=== PATIENT | female | born 1995 | race Caucasian/White ===

== ENCOUNTER 2020-12-18 09:46 | Outpatient (REF) | payer OTHER, SELFPAY ==
[2020-12-18 10:22] LABS: MANUAL DIFF FLAG NO
[2020-12-18 10:30] LABS: Basophils Percent Auto 0.5 % (0-2); Eosinophils Absolute Auto 0.1 X10*3/uL (0.0-0.4); Hematocrit 34.1 % (37-47); Hemoglobin 10.3 g/dl (12.0-16.0); Imm Gran Abs Auto 0.01 X10*3/uL (0.00-0.03); Imm Gran Pct Auto 0.3 % (0.0-0.4); Lymphocytes Absolute Auto 1.3 X10*3/uL (1.2-4.9); Lymphocytes Percent Auto 32.4 % (20-40); Mean Corpuscular HGB Conc 30.2 g/dl (31.0-35.0); Mean Corpuscular Hemoglobin 21.7 pg (27.0-33.0); Mean Corpuscular Volume 71.9 fL (80-98); Mean Platelet Volume 11.1 fL (9.4-12.3); Monocytes Absolute Auto 0.2 X10*3/uL (0.1-1.2); Neutrophils Absolute Auto 2.3 X10*3/uL (2.0-8.3); Neutrophils Percent Auto 57.8 % (45-73); Platelet Count 275 X10*3/uL (160-400); Red Blood Count 4.74 X10*6/uL (4.20-5.50); Red Cell Distribution Width 16.2 % (11.0-16.0)
[2020-12-18 10:55] LABS: Alanine Aminotransferase 16 U/L (0-31); Albumin Level 4.1 g/dL (3.5-5.0); Alkaline Phosphatase 67 U/L (39-117); Anion Gap 10 (12-20); Aspartate Amino Transferase 15 U/L (5-31); Bilirubin Total 0.5 mg/dL (0.0-1.0); Blood Urea Nitrogen 11 mg/dL (9-16); Calcium 9.5 mg/dL (8.4-10.2); Carbon Dioxide 25 mmol/L (22-29); Chloride 106 mmol/L (96-108); Estimated Glomerular Filt Rate > 60; Glucose Random 91 mg/dL (60-115); Potassium 4.1 mmol/L (3.3-5.1); Sodium 137 mmol/L (135-145); Total Protein 7.4 g/dL (6.5-8.0)
[2020-12-18 11:17] LABS: Thyroid Stimulating Hormone < 0.01 uIU/mL (0.32-4.0)
[2020-12-21 04:11] LABS: Lutenizing Hormone 4.4 mIU/mL
[2020-12-23 10:52] LABS: Testosterone, Total 23 ng/dL (2-45)
== END 2020-12-18 09:47 | disposition home or self-care (01) ==
LOC: HO.LAB 09:46
PROVIDERS: PCP Internal Medicine; Visit Provider Internal Medicine
DX: Z00.00 Encounter for general adult medical examination without abnormal findings (principal); E28.2 Polycystic ovarian syndrome; L70.2 Acne varioliformis
CPT/HCPCS: 36415; 80053; 83001; 83002; 83498; 84403; 84443; 85025

== ENCOUNTER → 2021-01-13 08:51 | Outpatient (BNVA) | payer OTHER, SELFPAY | PROVIDERS: PCP Internal Medicine; Visit Provider Advanced Practice Midwife | DX: Z30.09 Encounter for other general counseling and advice on contraception (principal); Z87.42 Personal history of other diseases of the female genital tract | CPT/HCPCS: 99202 ==

== ENCOUNTER 2021-10-29 10:15 | Outpatient (REF) | payer OTHER, SELFPAY ==
[2021-10-29 10:25] LABS: MANUAL DIFF FLAG NO
[2021-10-29 10:43] LABS: Basophils Percent Auto 0.4 % (0-2); Eosinophils Absolute Auto 0.2 X10*3/uL (0.0-0.4); Hematocrit 31.9 % (37.0-47.0); Hemoglobin 9.4 g/dl (12.0-16.0); Imm Gran Abs Auto 0.03 X10*3/uL (0.00-0.03); Imm Gran Pct Auto 0.4 % (0.0-0.4); Lymphocytes Absolute Auto 1.5 X10*3/uL (1.2-4.9); Lymphocytes Percent Auto 19.4 % (20-40); Mean Corpuscular HGB Conc 29.5 g/dl (31.0-35.0); Mean Corpuscular Hemoglobin 20.9 pg (27.0-33.0); Mean Corpuscular Volume 70.9 fL (80.0-98.0); Mean Platelet Volume 10.6 fL (9.4-12.3); Monocytes Absolute Auto 0.5 X10*3/uL (0.1-1.2); Monocytes Percent Auto 6.6 % (2-11); Neutrophils Absolute Auto 5.5 x10*3/uL (2.0-8.3); Neutrophils Percent Auto 71.2 % (45-73); Platelet Count 313 X10*3/uL (160-400); Red Cell Distribution Width 19.1 % (11.0-16.0); White Blood Count 7.7 X10*3/uL (4.8-10.8)
[2021-10-29 11:32] LABS: Ferritin 5 ng/mL (10-122)
== END 2021-10-29 10:16 | disposition home or self-care (01) ==
LOC: HO.LAB 10:15
PROVIDERS: PCP Internal Medicine; Visit Provider Internal Medicine
DX: D50.8 Other iron deficiency anemias (principal); R20.8 Other disturbances of skin sensation; R23.3 Spontaneous ecchymoses
CPT/HCPCS: 36415; 82728; 85025

== ENCOUNTER 2023-05-02 14:22 | Outpatient (REF) | payer OTHER, SELFPAY ==
--- NOTE | ~2023-05-02 | US_ITS ---
EXAMINATION: US DIAGNOSTIC ULTRASOUND BREAST, LEFT CLINICAL INFORMATION: 28-year-old female complaining of left breast lump 2-3 o'clock axis x3 weeks. No history of injury. No prior imaging.. COMPARISON: None available. TECHNIQUE: Ultrasound of the breast is performed with real-time reid scale imaging and color Doppler. Attention was given to the 2-3 o'clock axis in the region of palpable concern. FINDINGS: In the 2:00 axis, 3 cm from the nipple, there is a bilobed simple cyst of which the larger measures 1.2 x 0.8 cm, and the smaller measures 0.7 x 0.5 cm. This appears to represent the palpable focus of concern. A small amount of floating debris is present centrally in both cysts. Just lateral to this area is a 0.5 cm simple cyst as well. This appears to lie within a region of fibrocystic changes. Also in the 2:00 axis, 3 cm from the nipple, there is a small circumscribed oval mildly hypoechoic mass measuring 0.7 x 0.3 x 0.7 cm, most likely a small fibroadenoma. This immediately abuts the 2 larger cysts. We will reimage this with targeted ultrasound in 6 months. Results were provided to the patient at time of visit by the technologist. US/US breast LT limited mamm only IMPRESSION: Bilobed simple cysts in the 2:00 axis of the left breast, 3 cm from the nipple, correlating with the foci of palpable concern. These are benign. No further follow-up recommended. There are fibrocystic changes in the 2-3 o'clock region. 7 x 3 x 7 mm small probable fibroadenoma also in the 2:00 axis of the left breast, 3 cm from the nipple, of which six-month follow-up targeted left ultrasound is recommended to ensure stability. ASSESSMENT: BI-RADS 3 - Probably benign finding(s) - 6 month follow-up suggested RECOMMENDATION: 6 Month F/U
== END 2023-05-02 14:23 | disposition home or self-care (01) ==
LOC: HO.MAMMO 14:22
PROVIDERS: PCP Internal Medicine; Visit Provider Internal Medicine
DX: N63.25 Unspecified lump in the left breast, overlapping quadrants (principal)
CPT/HCPCS: 76642

== ENCOUNTER → 2023-05-02 14:30 | Outpatient (BNV) | payer OTHER, SELFPAY | PROVIDERS: PCP Internal Medicine; Visit Provider Radiology Diagnostic Radiology | DX: N63.21 Unspecified lump in the left breast, upper outer quadrant (principal) | CPT/HCPCS: 76642 ==

== ENCOUNTER 2024-03-26 14:02 | Outpatient (REF) | payer OTHER, SELFPAY ==
[2024-03-26 14:12] LABS: MANUAL DIFF FLAG NO
[2024-03-26 14:53] LABS: Basophils Absolute Auto 0.1 X10*3/uL (0.0-0.2); Basophils Percent Auto 0.7 % (0-2); Eosinophils Absolute Auto 0.2 X10*3/uL (0.0-0.4); Hematocrit 31.3 % (37.0-47.0); Hemoglobin 9.4 g/dl (12.0-16.0); Imm Gran Abs Auto 0.01 X10*3/uL (0.00-0.03); Imm Gran Pct Auto 0.1 % (0.0-0.4); Lymphocytes Absolute Auto 1.8 X10*3/uL (1.2-4.9); Lymphocytes Percent Auto 25.7 % (20-40); Mean Corpuscular Hemoglobin 21.3 pg (27.0-33.0); Mean Platelet Volume 11.5 fL (9.4-12.3); Monocytes Absolute Auto 0.4 X10*3/uL (0.1-1.2); Monocytes Percent Auto 6.1 % (2-11); Neutrophils Absolute Auto 4.5 x10*3/uL (2.0-8.3); Neutrophils Percent Auto 64.4 % (45-73); Platelet Count 327 X10*3/uL (160-400); Red Blood Count 4.41 X10*6/uL (4.20-5.50); Red Cell Distribution Width 17.5 % (11.0-16.0); White Blood Count 7.1 X10*3/uL (4.8-10.8)
[2024-03-26 15:24] LABS: Alanine Aminotransferase 14 U/L (0-31); Albumin Level 4.3 g/dL (3.5-5.0); Alkaline Phosphatase 48 U/L (39-117); Anion Gap 8 (12-20); Aspartate Amino Transferase 30 U/L (5-31); Bilirubin Total 0.5 mg/dL (0.0-1.0); Blood Urea Nitrogen 11 mg/dL (9-16); Calcium 8.4 mg/dL (8.4-10.2); Carbon Dioxide 28 mmol/L (22-29); Chloride 105 mmol/L (96-108); Estimated Glomerular Filt Rate > 60; Glucose Random 109 mg/dL (60-115); Sodium 137 mmol/L (135-145); Total Protein 7.9 g/dL (6.5-8.0)
[2024-03-26 15:39] LABS: Ferritin 4 ng/mL (10-122); Vitamin D 25-OH Total 16.7 ng/mL (>30)
[2024-03-31 18:44] LABS: Immunoglobulin A 420 mg/dL (47-310); Transglutaminase IgA <1.0 U/mL
== END 2024-03-26 14:03 | disposition home or self-care (01) ==
LOC: HO.LAB 14:02
PROVIDERS: PCP Internal Medicine; Visit Provider Internal Medicine
DX: D50.8 Other iron deficiency anemias (principal); M94.0 Chondrocostal junction syndrome [Tietze]; N60.09 Solitary cyst of unspecified breast; Z68.23 Body mass index [BMI] 23.0-23.9, adult
CPT/HCPCS: 36415; 80053; 82306; 82728; 82784; 85025; 86364

== ENCOUNTER 2024-07-25 10:51 | Outpatient (REF) | payer OTHER, SELFPAY ==
--- NOTE | ~2024-07-25 | US_ITS ---
EXAMINATION: US DIAGNOSTIC ULTRASOUND BREAST, BILATERAL CLINICAL INFORMATION: Follow-up for left breast solid mass at 2:00 3 cm from the nipple April 2023. Patient has right breast palpable lumps upper outer quadrant and medial. COMPARISON: Comparison is made with relevant prior imaging. TECHNIQUE: Ultrasound of the breast is performed with real-time reid scale imaging and color Doppler. FINDINGS: : Targeted color Doppler ultrasound again demonstrates a hypoechoic oval solid mass at 2:00 recent meters from nipple measuring 6 x 3 x 8 mm not significantly changed from prior ultrasound April 2023. Targeted color Doppler ultrasound scanning in the right breast upper outer quadrant demonstrates normal fibronodular breast tissue. Targeted ultrasound in the lower inner quadrant over the sternum area of patient's palpable lump demonstrates a hypoechoic oval solid mass measuring 9 x 6 x 11 mm. Results are discussed with the patient at time of visit. US/US breast BI limited mamm only IMPRESSION: Left: Hypoechoic solid mass at 2:00 3 cm from nipple not significantly changed from prior ultrasound April 2023. Recommend one-year follow-up ultrasound for further evaluation of stability. Right: Hypoechoic oval mass over the sternum lower inner quadrant 4-5 o'clock. Recommend 6 month follow-up for further evaluation of stability. No sonographic abnormality to account for the right upper outer quadrant palpable lump. Recommend clinical evaluation and follow-up. ASSESSMENT: BI-RADS 3: Probably Benign RECOMMENDATION: Diagnostic ultrasound in 6 months. This patient's information was entered into a reminder system with a target due date for their next mammogram. Electronically signed by: Beverly Campos DO 07/26/2024 02:25 PM EDT
--- OUTSIDE RECORDS SUMMARY | 2024-07-25 12:55 | XMS_ITS | Clinical Summary ---
Author Organization [facility] it Address [address] [place] [address] Care Team Providers Care Extension Agent Name Role Phone Unavailable Primary Care Provider Unavailabl e Social History Tobacco Use Types Packs/Day Years Used Date Smoking Tobacco: Never Smokeless Tobacco: Never Comments Unknown Sex and Gender Information Value Date Recorded Sex Assigned at Not on file Legal Sex Female 1:42 PM EST Gender Identity Not on file Sexual Orientation Not on file Obstetrics History Plan of Treatment Health Maintenance Due Date Last Done Comments DTaP,Tdap,and Td Vaccines (1 - Tdap) 01/10/2015 Hepatitis B Vaccines (1 of 3 - 19+ 3-dose series) 01/10/2015 Cervical Cancer Screening: P ap Smear 01/10/2017 COVID-19 Vaccine ( - 2023-2 5 season) 2023 Depression Screening 04/24/2024 HIV Screening 04/24/2024 Hepatitis C Screening 04/24/2024 Social Influencers of Health Screening 04/24/2024 Influenza Vaccine (Season Ended) 2024 HIB Vaccines Aged Out No longer eligi ble based on patient's age to complete this topic HPV Vaccines Aged Out No longer eligi ble based on patient's age to complete this topic Hepatitis A Vaccines Aged Out No long er eligible based on patient's age to complete this topic IPV Vaccines Aged Out No longer eligi ble based on patient's age to complete this topic MMR Vaccines Aged Out No longer eligi ble based on patient's age to complete this topic Meningococcal ACWY Vaccine Aged Out N o longer eligible based on patient's age to complete this topic Meningococcal B Vaccine Aged Out No l onger eligible based on patient's age to complete this topic Pneumococcal Vaccine: Pediat rics (0 to 5 Years) and At-Risk Patients (6 to 64 Years) Aged Out No longer eligible b ased on patient's age to complete this topic RSV Immunization Patients Un josé 20 months Aged Out No longer eligible b ased on patient's age to complete this topic Varicella Vaccines Aged Out No longer eligible based on patient's age to complete this topic
== END 2024-07-25 10:52 | disposition home or self-care (01) ==
LOC: HO.MAMMO 10:51
PROVIDERS: PCP Internal Medicine; Visit Provider Internal Medicine
DX: N60.09 Solitary cyst of unspecified breast (principal)
CPT/HCPCS: 76642

== ENCOUNTER → 2024-07-25 11:00 | Outpatient (BNV) | payer OTHER, SELFPAY | PROVIDERS: PCP Internal Medicine; Visit Provider Internal Medicine | DX: N63.11 Unspecified lump in the right breast, upper outer quadrant (principal); N63.21 Unspecified lump in the left breast, upper outer quadrant | CPT/HCPCS: 76642 ==

== ENCOUNTER 2024-10-30 16:30 | Outpatient (REF) | payer OTHER, SELFPAY ==
[2024-10-30 16:39] LABS: MANUAL DIFF FLAG NO
--- OUTSIDE RECORDS SUMMARY | 2024-10-30 16:45 | XMS_ITS | Clinical Summary ---
Author Organization [facility] Address [address] [place] [address] Care Team Providers Care Optimization Consultant Name Role Phone Community, Pcp Primary Care Provider Unavailabl e Allergies No known active allergies Medications Medication Sig Dispensed Refills Start Date End Date Status clindamycin (CLEOCIN T) 1 % lotion Apply to face qAM 60 mL 4 02/27/2019 Active tretinoin (RETIN-A) 0.025 % cream Apply pea size amount QHS 45 g 3 02/27/2019 Active Doxycycline Hyclate 50 MG Tab Take 1 Tab by mouth 2 times daily. 60 Tab 2 06/05/2019 Active spironolactone (ALDACTONE) 50 MG tablet TAKE 1 TABLET BY MOUTH EVERY DAY 30 tablet 0 08/19/2020 Active Social History Tobacco Use Types Packs/Day Years Used Date Smoking Tobacco: Never Smokeless Tobacco: Never Sex Assigned at Date Recorded Not on file Last Filed Vital Signs Vital Sign Reading Time Taken Comments Blood Pressure 110/68 06/05/2019 9:11 AM EST Pulse 92 06/05/2019 9:11 AM EST Temperature - - Respiratory Rate - - Oxygen Saturation - - Inhaled Oxygen Concentration - - Weight 56.2 kg (124 lb) 06/05/2019 9:11 AM EST Height - - Body Mass Index - - Plan of Treatment Health Maintenance Due Date Last Done Comments Covid-19 Vaccine (#1) 1996 BASELINE HEALTH EXAM 18-39 01/10/2015 DTAP/TDAP/TD (1 - Tdap) 01/10/2015 CHOLESTEROL SCREENING 2016 CERVICAL CANCER SCREENING 01/10/2017 BMI CHECK/ADVISE 04/11/2024 DEPRESSION SCREENING/FOLLOWUP 04/11/2024 SOCIAL NEEDS SCREENING 04/11/2024 INFLUENZA (#1) 2024 PNEUMOCOCCAL VACCINE FOR HIGH RISK PATIENTS (#1) 01/10 Care Teams Optimization Consultant Relationship Specialty Start Date End Date Community, Pcp PCP - General Internal Medicine 09/01/16
--- OUTSIDE RECORDS SUMMARY | 2024-10-30 16:45 | XMS_ITS | Clinical Summary ---
Author Organization [facility] it Address [address] [place] [address] Care Team Providers Care Topline Beading Machine Tender Name Role Phone Unavailable Primary Care Provider [...] - 2023-2 5 season) 2023 Depression Screening 04/11/2024 HIV Screening 04/24/2024 Hepatitis C Screening 04/24/2024 Social Influencers of Health Screening 04/24/2024 Influenza Vaccine (#1) 2024 HIB Vaccines Aged Out No longer [...] 5 Years) and At-Risk Patients (6 to 49 Years) Aged Out No longer eligible b ased on patient's age to complete this topic RSV Immunization Patients Un ojsé 20 months Aged Out No longer eligible b ased on patient's age to complete this topic Varicella Vaccines Aged Out No longer eligible based on patient's age to complete this topic
[2024-10-30 17:25] LABS: Hematocrit 38.0 % (37.0-47.0); Hemoglobin 12.9 g/dl (12.0-16.0); Imm Gran Abs Auto 0.02 X10*3/uL (0.00-0.03); Imm Gran Pct Auto 0.3 % (0.0-0.4); Lymphocytes Absolute Auto 2.1 X10*3/uL (1.2-4.9); Mean Corpuscular HGB Conc 33.9 g/dl (31.0-35.0); Mean Corpuscular Hemoglobin 29.7 pg (27.0-33.0); Mean Corpuscular Volume 87.4 fL (80.0-98.0); NRBC Abs Auto 0.000 X10*3/uL (0.0-0.012); NRBC Pct Auto 0.0 /100WBC (0.0-0.2); Platelet Count 258 X10*3/uL (160-400); Red Blood Count 4.35 X10*6/uL (4.20-5.50); White Blood Count 7.7 X10*3/uL (4.8-10.8)
[2024-10-30 17:54] LABS: Ferritin 15 ng/mL (10-122); Thyroid Stimulating Hormone 1.66 uIU/mL (0.32-4.0)
== END 2024-10-30 16:31 | disposition home or self-care (01) ==
LOC: HO.LAB 16:30
PROVIDERS: PCP Internal Medicine; Visit Provider Internal Medicine
DX: Z00.00 Encounter for general adult medical examination without abnormal findings (principal); D50.8 Other iron deficiency anemias; E55.9 Vitamin D deficiency, unspecified; M94.0 Chondrocostal junction syndrome [Tietze]; N60.11 Diffuse cystic mastopathy of right breast
CPT/HCPCS: 36415; 82306; 82728; 84443; 85025